=== PATIENT | male | born 1990 | race Caucasian/White ===

== ENCOUNTER 2022-11-23 12:28 | Emergency (ER) | payer BC ==
[~2022-11-23] VITALS: Ht 182.9 cm; Wt 81.0 kg
[2022-11-23 12:35] VITALS: TEMP 98.2; O2SAT 98
[2022-11-23 14:00] VITALS: BP 164/87; PULSE 101; RESP 16
[2022-11-23] MEDS ORDERED: KETOROLAC 60MG/2ML VIAL IM ONE (14:00)
[2022-11-23] MEDS ORDERED: IBUP-2029 MT (14:45)
== END 2022-11-23 15:17 | disposition home or self-care (01) ==
LOC: ER 12:28
DX: S42.252A Displaced fracture of greater tuberosity of left humerus, initial encounter for closed fracture (principal); X58.XXXA Exposure to other specified factors, initial encounter; Y93.89 Activity, other specified; Y92.89 Other specified places as the place of occurrence of the external cause; Y99.8 Other external cause status
CPT/HCPCS: 73030; 96372; 99283; A4565; J1885